=== PATIENT | male | born 2000 | race Caucasian/White ===

== ENCOUNTER 2022-07-18 00:26 | Emergency (ER) | payer SELFPAY ==
[~2022-07-18] VITALS: Ht 180.3 cm; Wt 93.0 kg
--- NOTE | 2022-07-18 00:27 | NUR ---
AVA FROM [facility] WITH POSSIBLE FENTANYL OD. PT DOES ANSWER QUESTIONS SLOWLY AND QUIETLY AND FOLLOWS COMMANDS. WARM BLANKET GIVEN
--- NOTE | 2022-07-18 00:27 | NUR ---
PT BROUGHT TO BED 4 VIA [facility]
[2022-07-18 00:36] VITALS: BP 128/70
[2022-07-18 02:00] VITALS: BP 128/70
--- NOTE | 2022-07-18 02:00 | NUR ---
RESTING IN BED WITH EYES CLOSED, RESPIRATIONS REGULAR AND UNLABORED
[2022-07-18] MEDS ORDERED: NALO4SPR NS (03:21)
--- NOTE | 2022-07-18 03:45 | NUR ---
Patient discharged with v/s stable. Written and verbal after care instructions given and explained. Patient alert, oriented and verbalized understanding of instructions. Ambulatory with steady gait. All questions addressed prior to discharge. ID band removed. Patient advised to follow up with PMD. Rx of NARCAN given. Patient educated on indication of medication including possible reaction and side effects. Opportunity to ask questions provided and answered.
== END 2022-07-18 03:45 | disposition home or self-care (01) ==
LOC: MED 00:26
DX: Z00.00 Encounter for general adult medical examination without abnormal findings (principal); T40.411A Poisoning by fentanyl or fentanyl analogs, accidental (unintentional), initial encounter; E11.9 Type 2 diabetes mellitus without complications; Z79.4 Long term (current) use of insulin; Z79.899 Other long term (current) drug therapy; Y92.89 Other specified places as the place of occurrence of the external cause
CPT/HCPCS: 99283